=== PATIENT | female | born 1960 | race Caucasian/White ===

== ENCOUNTER 2021-10-10 18:56 | Emergency (ER) | payer MEDICAID ==
[~2021-10-10] VITALS: Ht 165.1 cm; Wt 64.0 kg
[2021-10-10 19:21] VITALS: BP 136/74
[2021-10-11] MEDS ORDERED: TOPUD PO (07:32)
== END 2021-10-10 20:14 | disposition left against medical advice (07) ==
LOC: ER 18:56
DX: Z53.21 Procedure and treatment not carried out due to patient leaving prior to being seen by health care provider (principal)

== ENCOUNTER 2021-10-11 05:59 | Emergency (ER) | payer MEDICAID ==
[~2021-10-11] VITALS: Ht 162.6 cm; Wt 65.0 kg
[2021-10-11] MEDS ORDERED: ACETAMINOPHEN 325MG TABLET PO ONE (06:30)
[2021-10-11] MEDS ORDERED: TOPUD PO (07:32)
[2021-10-11 08:50] VITALS: BP 145/83
== END 2021-10-11 08:52 | disposition home or self-care (01) ==
LOC: ER 06:13
DX: S12.290A Other displaced fracture of third cervical vertebra, initial encounter for closed fracture (principal); S02.85XA Fracture of orbit, unspecified, initial encounter for closed fracture; Y08.89XA Assault by other specified means, initial encounter; Y93.89 Activity, other specified; Y92.89 Other specified places as the place of occurrence of the external cause; Y99.8 Other external cause status
CPT/HCPCS: 70486; 99284

== ENCOUNTER 2021-10-11 11:33 | Emergency (ER) | payer MEDICAID ==
[~2021-10-11] VITALS: Ht 157.5 cm; Wt 61.0 kg
[~2021-10-11 11:33] MED LIST: TOPUD PO
[2021-10-11] MEDS ORDERED: IBUPROFEN 600MG TABLET PO ONE (12:45)
[2021-10-11 13:03] VITALS: BP 130/69
== END 2021-10-11 14:05 | disposition home or self-care (01) ==
LOC: ER 12:44
DX: S00.31XA Abrasion of nose, initial encounter (principal); X58.XXXA Exposure to other specified factors, initial encounter; Y93.89 Activity, other specified; Y92.89 Other specified places as the place of occurrence of the external cause; Y99.8 Other external cause status
CPT/HCPCS: 99282